=== PATIENT | male | born 1995 | race Caucasian/White ===

== ENCOUNTER 2017-09-30 23:54 | Emergency (ER) | payer BC ==
[~2017-09-30] VITALS: Ht 172.7 cm; Wt 102.1 kg
[2017-09-30 23:57] VITALS: BP 114/81
--- NOTE | 2017-10-01 00:29 | NUR ---
called pt in wr, no response. per admitting pt went to go smoke
[2017-10-01] MEDS ORDERED: ACETAMINOPHEN ES 500 MG TABLET ONE (01:09)
[2017-10-01] MEDS ORDERED: ACETAMINOPHEN 325 MG TABLET PO ONE (01:30)
== END 2017-10-01 01:27 | disposition home or self-care (01) ==
LOC: ER 23:55
DX: J06.9 Acute upper respiratory infection, unspecified (principal); F17.200 Nicotine dependence, unspecified, uncomplicated
CPT/HCPCS: A4606; Z7610